=== PATIENT | female | born 1980 | race African-American/Black ===

== ENCOUNTER 2016-12-11 08:46 | Emergency (ER) | payer OTHER ==
[~2016-12-11] VITALS: Ht 160 cm; Wt 75.0 kg
[~2016-12-11 08:46] MED LIST: ERYTOIN10 LEFT EYE; IBUP800T23 PO
[2016-12-11 08:51] VITALS: BP 110/71; PULSE 71; RESP 16; TEMP 98.7; O2SAT 100
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
[2016-12-11] MEDS ORDERED: IBUPROFEN 600 MG TAB PO ONE (10:00)
[2016-12-11] MEDS ORDERED: METHOCARBAMOL 500 MG TAB PO ONE (10:00)
[2016-12-11] MEDS ORDERED: ROBA750T PO (10:07)
[2016-12-11] MEDS ORDERED: IBUP-232 PO (10:07)
== END 2016-12-11 10:18 | disposition home or self-care (01) ==
LOC: NEPB 08:46
DX: S16.1XXA Strain of muscle, fascia and tendon at neck level, initial encounter (principal); R51 Headache; M54.5 Low back pain
CPT/HCPCS: 99283; L0150